=== PATIENT | male | born 1965 | race Native Hawaiian/Other Pacific Islander ===

== ENCOUNTER 2017-02-06 14:54 | Emergency (ER) | payer MEDICARE ==
[2017-02-06] MEDS ORDERED: KEFZOL 1 GM IM ONE (15:05)
[2017-02-06] MEDS ORDERED: Adacel Vial IM ONE ×2 (15:05→15:39)
--- NOTE | 2017-02-06 15:12 | ERPHSYRPT ---
- History of Present Illness Time Seen by Provider: 02/06/17 15:06 Source: patient Exam Limitations: no limitations Physician History: 51-year-old white male arrives with complaint of amputation to his left fourth distal ring finger. Patient states he caught the left fourth distal ring finger in [place] an automobile. Patient brings in the distal tip of the left fourth distal finger. The finger had been amputated at the DIP joint. Patient complains of no pain to the finger. Patient also states he has pain of the left third finger at the PIP joint. He denies other injury. Patient states this occurred right just prior to arrival Past medical history includes a vascular stent to his lower legs from his heart, . Patient states he has a history of a punctured lung in the past. Patient states she is on blood thinners. Social history positive for tobacco use. Last tetanus 10 years ago. Occurred: just prior to arrival Method of Injury: other (caught left hand in [place] automobile) Severity of Pain-Max: none Severity of Pain-Current: none Extremities Pain Location: 2nd finger: left, 3rd finger: left Modifying Factors: Improves With: nothing Associated Symptoms: none Allergies/Adverse Reactions: No Known Drug Allergies Allergy (Unverified 02/06/17 15:10) Home Medications: Aspirin 325 mg DAILY 02/06/17 [History] - Review of Systems Constitutional: No Fever, No Chills Eyes: No Symptoms Ears, Nose, & Throat: No Symptoms Respiratory: No Cough, No Dyspnea Cardiac: No Chest Pain, No Edema, No Syncope Abdominal/Gastrointestinal: No Abdominal Pain, No Nausea, No Vomiting, No Diarrhea Genitourinary Symptoms: No Dysuria Musculoskeletal: Other (amputation left fourth distal finger, pain left fourth distal finger with swelling at PIP joint) Skin: Other (amputation left fourth distal finger) Neurological: No Dizziness, No Focal Weakness, No Sensory Changes Psychological: No Symptoms Endocrine: No Symptoms All Other Systems: Reviewed and Negative - Past Medical History Cardiac History: Coronary Artery Disease, Peripheral Vascular Disease - Past Surgical History Past Surgical History: Yes Other Surgical History: Vascular shunt from heart to lower extremities, "tube in heart, , c places himhest tube for punctured lung - Nursing Vital Signs Nursing Vital Signs: Initial Vital Signs Temperature 97.0 F 02/06/17 14:59 Pulse Rate 91 H 02/06/17 14:59 Respiratory Rate 89 H 02/06/17 14:59 Blood Pressure 127/96 02/06/17 14:59 O2 Sat by Pulse Oximetry 100 02/06/17 14:59 Pain Scale Pain Intensity 0 - Physical Exam General Appearance: alert Eyes, Ears, Nose, Throat Exam: moist mucous membranes Neck Exam: non-tender, supple Cardiovascular/Respiratory Exam: chest non-tender, normal breath sounds, regular rate/rhythm, no respiratory distress Abdominal Exam: non-tender, No guarding Back Exam: normal inspection, No vertebral tenderness Shoulder Exam: normal inspection, non-tender, no evidence of injury, normal ROM Elbow/Forearm Exam: normal inspection, non-tender, no evidence of injury, normal ROM Wrist Exam: normal inspection, non-tender, no evidence of injury, normal ROM Hand Exam: No normal inspection (amputation distal left fourth finger at the DIP joint. Swelling left third finger at PIP joint) DTR - Upper Extremity Exam: tricep (R): 2+, tricep (L): 2+ Neuro/Tendon Exam: normal sensation, normal motor functions Mental Status Exam: alert, oriented x 3, cooperative Skin Exam: normal color, warm, dry SpO2 Interpretation: normal (97%) - Course Nursing assessment & vital signs reviewed: Yes - Radiology Exams Left X-ray Interpretation: Interpreted by me (x-ray left hand: Amputation distal left fourth finger through DIP joint) Ordered Tests: Active Orders 24 hr Category Date Time Status Wound Care STAT Care 02/06/17 15:05 Active HAND (MINIMUM 3 VIEWS) Stat Exams 02/06/17 15:05 Taken Medication Summary Generic Name Dose Route Start Last Admin Trade Name Freq PRN Reason Stop Dose Admin Cefazolin Sodium/Dextrose 1 gm in 50 mls @ 100 mls/hr 02/06/17 15:39 15:40 Kefzol 1 Gm/50 Ml Premix IV 02/06/17 16:08 100 mls/hr STAT STA Administration Discontinued Medications Generic Name Dose Route Start Last Admin Trade Name Freq PRN Reason Stop Dose Admin Cefazolin Sodium 1 g 02/06/17 15:05 02/06/17 15:38 Kefzol 1 Gm IM 02/06/17 15:06 Not Given STAT ONE Diphtheria/Tetanus/Acell Pertussis 0.5 ml 02/06/17 15:05 02/06/17 15:37 Adacel Vial IM 02/06/17 15:06 0.5 ml .ONCE ONE Administration Diphtheria/Tetanus/Acell Pertussis Confirm 02/06/17 15:39 Adacel Vial Administered 02/06/17 15:40 Dose 0.5 ml IM .STK-MED ONE Cefazolin Sodium/Dextrose Confirm 02/06/17 15:36 Kefzol 1 Gm/50 Ml Premix Administered 02/06/17 15:37 Dose 1 gm in 50 mls @ ud IV .STK-MED ONE Lidocaine HCl 5 ml 02/06/17 15:52 Xylocaine 1% Hcl 20 Ml Mdv IJ 02/06/17 15:53 STAT ONE - Progress Progress: improved Progress Note: 02/06/17 15:35 This is a 51-year-old white male arrives with complaint of amputation of his distal left fourth finger after catching it in [place] an automobile just prior to arrival he also has some pain in his left third finger at the PIP joint. Patient had brought in the amputated portion of his distal fourth finger. Patient had a ring in place on the fourth finger. Ring has been removed by the nurses. Patient requested to be sent or consulted with with [facility]. He had minimal pain however is starting to get pain now. I discussed case with Dr. Jewell, hand surgeon at [facility]. He stated that the patient should be anesthetized. The wound should be cleansed. Dressing should be placed. A splint should be placed. Patient should be given Kefzol 1 g IV. Discharge with a prescription for Kefzol 500 mg every 6 hours for 10 days. Patient to contact Dr. Jewell tomorrow. Will write for pain medication as well 02/06/17 15:59 Digital block placed in the patient's left fourth finger using 1% lidocaine. Area sterilely cleansed and draped 1% lidocaine is used to to provide digital block tothe left fourth finger . The left fourth finger sterilely cleansed by the patient's nurse. Sterile dressing and splint is placed over the left fourth finger splint is also placed on the left fifth finger. Patient was given Kefzol 1 g IV - Departure Time of Disposition: 16:01 Departure Disposition: Home Clinical Impression: amputation distal fourth finger L, Sprain left third finger Condition: Fair Critical Care Time: No Additional Instructions: Return home. Keflex 500 mg orally every 6 hours for 10 days Rea 5/325 #15 one to 2 orally every 4-6 hours as needed for pain/ Follow-up with Dr. Jewell tomorrow ( call his office) Return for acute distress or for severe symptoms Prescriptions: Cephalexin Mh 500 mg [Keflex 500 mg] 500 mg PO Q6H #40 capsule Hydrocodone/Acetaminophen [Rea 5-325 Tablet] 1 - 2 tab PO Q4-6HPRN PRN #15 tablet MDD 8 tablets PRN Reason: Pain
[2017-02-06] MEDS ORDERED: KEFZOL 1 GM/50 ML PREMIX** 1 GM/50 ML IVPB IV ONE (15:36)
[2017-02-06] MEDS ORDERED: KEFZOL 1 GM/50 ML PREMIX** 1 GM/50 ML IVPB IV STA (15:39)
[2017-02-06] MEDS ORDERED: XYLOCAINE 1% HCL 20 ML MDV IJ ONE (15:52)
[2017-02-06 16:40] VITALS: BP 120/70; PULSE 77; O2SAT 97
--- NOTE | 2017-02-06 20:19 | XRAY ---
Indication: Fourth finger amputation. Comparison: None 3 views of the left hand demonstrates amputation involving the tuft of the fourth finger with also anterior DIP dislocation. Tiny punctate soft tissue foreign bodies at the base of the fourth finger. No other bony, articular, or soft tissue abnormalities.
== END 2017-02-06 16:48 | disposition home or self-care (01) ==
LOC: ED 14:54
DX: S68.125A Partial traumatic metacarpophalangeal amputation of left ring finger, initial encounter (principal); W31.89XA Contact with other specified machinery, initial encounter; I25.10 Atherosclerotic heart disease of native coronary artery without angina pectoris; I73.9 Peripheral vascular disease, unspecified; S63.615A Unspecified sprain of left ring finger, initial encounter
CPT/HCPCS: 73130; 90471; 90715; 96365; 96372; 99284; J0690

== ENCOUNTER 2018-09-16 13:17 | Emergency (ER) | payer MEDICAID, MEDICARE ==
[2018-09-16] MEDS ORDERED: Sodium Chloride 0.9% 1000 ML 1,000 ML IV STA (13:36)
[2018-09-16] MEDS ORDERED: Sodium Chloride 0.9% 1000 ML 1,000 ML ONE (13:46)
[2018-09-16 13:59] LABS: BASOPHIL % 0.5 % (0.0-0.4); Basophil (Absolute #) 0.02 (0-0.4); Eosinophil % 2.7 % (0.00-5.0); Eosinophil (Absolute #) 0.11 (0-0.5); Granulocyte Absolute (ANC) 2.87 (1.4-6.9); Granulocytes % 70.6 % (36.0-66.0); Hematocrit 38.3 % (42-50); Hemoglobin 12.6 gm/dl (12.5-18.0); Lymphocyte (Absolute #) 0.82 (1.0-4.6); Lymphocytes % 20.1 % (24.0-44.0); Mean Cell Volume 89.3 fl (78-100); Mean Corpuscular Hemoglobin 29.4 pg (26-32); Mean Corpuscular Hgb Concent. 32.9 g/dl (32-36); Mean Platelet Volume 9.8 fl (6-9.5); Monocyte (Absolute #) 0.25 (0.0-1.3); Monocytes % 6.1 % (0.0-12.0); Platelet Count 196 K/mm3 (150-450); Red Blood Count 4.29 M/mm3 (4.1-5.6); Red Cell Distribution Width 14.6 % (11.5-14.0); White Blood Count 4.1 K/mm3 (4.0-10.5)
--- NOTE | 2018-09-16 14:20 | ERPHSYRPT ---
- History of Present Illness Time Seen by Provider: 09/16/18 14:18 Source: patient Exam Limitations: no limitations Patient Subjective Stated Complaint: states was arguing with outside and got overheated. c/o weakness. Triage Nursing Assessment: on arrival per ems patient is hot to touch and diaphoretic. a/o times four. states he feels better now. iv fluids of saline w/o. Physician History: states was arguing with outside and got overheated. c/o weakness. Denies any other symptoms, feels better after he got IV fluids in ambulance. Timing/Duration: today Associated Symptoms: shortness of breath, diaphoresis, weakness Allergies/Adverse Reactions: acetaminophen [From Tylenol] Adverse Reaction (Verified 09/16/18 13:27) Home Medications: Aspirin 325 mg PO DAILY 02/06/17 [History] Hx Tetanus, Diphtheria Vaccination/Date Given: Yes (2016) Hx Influenza Vaccination/Date Given: No Hx Pneumococcal Vaccination/Date Given: No - Review of Systems Constitutional: Weakness, No Fever, No Chills Eyes: No Symptoms Ears, Nose, & Throat: No Symptoms Respiratory: Dyspnea, Dyspnea on Exertion (BELLE), No Cough Cardiac: No Chest Pain, No Edema, No Syncope Abdominal/Gastrointestinal: No Abdominal Pain, No Nausea, No Vomiting, No Diarrhea Genitourinary Symptoms: No Dysuria Musculoskeletal: No Back Pain, No Neck Pain Skin: No Rash Neurological: No Dizziness, No Focal Weakness, No Sensory Changes Psychological: No Symptoms Endocrine: No Symptoms All Other Systems: Reviewed and Negative - Past Medical History Pertinent Past Medical History: Yes Cardiac History: Coronary Artery Disease, Peripheral Vascular Disease Other Medical History: right lung collapsed - Past Surgical History Past Surgical History: Yes Cardiac: CABG, Cardiac Catheterization, Cardiac Stent Respiratory: Other Musculoskeletal: Orthopedic Surgery Other Surgical History: Vascular shunt from heart to lower extremities, "tube in heart, , c places himhest tube for punctured lung, left arm surgery - Social History Smoking Status: Current every day smoker Exposure to second hand smoke: Yes Drug Use: none Patient Lives Alone: No - Nursing Vital Signs Nursing Vital Signs: Initial Vital Signs Temperature 98.3 F 09/16/18 13:22 Pulse Rate 91 H 09/16/18 13:22 Respiratory Rate 16 09/16/18 13:22 Blood Pressure 115/66 09/16/18 13:22 O2 Sat by Pulse Oximetry 97 09/16/18 13:22 Pain Scale Pain Intensity 0 - Physical Exam General Appearance: no apparent distress, alert Eye Exam: PERRL/EOMI, eyes nml inspection Ears, Nose, Throat Exam: normal ENT inspection, TMs normal, pharynx normal, moist mucous membranes Neck Exam: normal inspection, non-tender, supple, full range of motion Respiratory Exam: normal breath sounds, lungs clear, No respiratory distress Cardiovascular Exam: regular rate/rhythm, normal heart sounds, normal peripheral pulses Gastrointestinal/Abdomen Exam: soft, normal bowel sounds, No tenderness, No mass Back Exam: normal inspection, normal range of motion, No CVA tenderness, No vertebral tenderness Extremity Exam: normal inspection, normal range of motion, pelvis stable Neurologic Exam: alert, oriented x 3, cooperative, normal mood/affect, nml cerebellar function, nml station & gait, sensation nml, No motor deficits Skin Exam: normal color, warm, dry, No rash Lymphatic Exam: No adenopathy SpO2: 97 - Course Nursing assessment & vital signs reviewed: Yes Ordered Tests: Active Orders 24 hr Category Date Time Status EKG-ER Only STAT Care 09/16/18 13:36 Active Oxygen-ED Only Nasal Cannula 2 lpm Care 09/16/18 13:36 Active CHEST 1 VIEW (PORTABLE) Stat Exams 09/16/18 13:37 Ordered CBC W DIFF Stat Lab 09/16/18 13:56 Completed CMP Stat Lab 09/16/18 13:56 Completed TROPONIN Stat Lab 09/16/18 13:56 Completed Medication Summary Generic Name Dose Route Start Last Admin Trade Name Freq PRN Reason Stop Dose Admin Sodium Chloride 1,000 mls @ 999 mls/hr 09/16/18 13:36 09/16/18 13:46 Sodium Chloride 0.9% 1000 Ml IV 09/16/18 14:36 999 mls/hr .Q1H1M STA Administration Potassium Bicarbonate 50 meq 09/16/18 14:30 K-Lyte 25 Meq PO 09/16/18 14:31 STAT ONE Discontinued Medications Generic Name Dose Route Start Last Admin Trade Name Freq PRN Reason Stop Dose Admin Sodium Chloride Confirm 09/16/18 13:46 Sodium Chloride 0.9% 1000 Ml Administered 09/16/18 13:47 Dose 1,000 mls @ .ROUTE .[facility]-MED ONE Lab/Rad Data: Laboratory Result Diagrams 09/16/18 13:56 09/16/18 13:56 Laboratory Results 09/16/18 09/16/18 Range/Units 13:56 13:56 WBC 4.1 (4.0-10.5) K/mm3 RBC 4.29 (4.1-5.6) M/mm3 Hgb 12.6 (12.5-18.0) gm/dl Hct 38.3 L (42-50) % MCV 89.3 (78-100) fl MCH 29.4 (26-32) pg MCHC 32.9 (32-36) g/dl RDW 14.6 H (11.5-14.0) % Plt Count 196 (150-450) K/mm3 MPV 9.8 H (6-9.5) fl Gran % 70.6 H (36.0-66.0) % Eos # (Auto) 0.11 (0-0.5) Absolute Lymphs (auto) 0.82 L (1.0-4.6) Absolute Monos (auto) 0.25 (0.0-1.3) Lymphocytes % 20.1 L (24.0-44.0) % Monocytes % 6.1 (0.0-12.0) % Eosinophils % 2.7 (0.00-5.0) % Basophils % 0.5 (0.0-0.4) % Absolute Granulocytes 2.87 (1.4-6.9) Basophils # 0.02 (0-0.4) Sodium 141 (137-145) mmol/L Potassium 3.2 L (3.5-5.1) mmol/L Chloride 110 H (98-107) mmol/L Carbon Dioxide 26 (22-30) mmol/L Anion Gap 8.8 (5-15) MEQ/L BUN 18 (9-20) mg/dL Creatinine 0.79 (0.66-1.25) mg/dL Estimated GFR > 60.0 ML/MIN Glucose 139 H (74-106) mg/dL Calcium 7.9 L (8.4-10.2) mg/dL Total Bilirubin 0.60 (0.2-1.3) mg/dL AST 20 (17-59) U/L ALT 13 (0-50) U/L Alkaline Phosphatase 69 (38-126) U/L Troponin I < 0.012 (0.000-0.034) ng/mL Serum Total Protein 5.7 L (6.3-8.2) g/dL Albumin 3.1 L (3.5-5.0) g/dL - Progress Progress: improved Counseled pt/family regarding: lab results, diagnosis, need for follow-up, rad results - Departure Departure Disposition: Home Clinical Impression: Mild dehydration, Hypokalemia Condition: Stable Critical Care Time: No Referrals: DOCTOR,NO FAMILY [Primary Care Provider] - Instructions: Dehydration, Adult (DC), Hypokalemia (DC) Additional Instructions: Discharge/Care Plan DAVID EL was seen on 09/16/18 in the Emergency Room. The patient was counseled regarding Diagnosis,Lab results, Imaging studies, need for follow up and when to return to the Emergency Room. Prescriptions given: Discharge Note I have spoken with the patient and/or caregivers. I have explained the patient' s condition, diagnosis and treatment plan based on the information available to me at this time. I have answered the patient's and/or caregiver's questions and addressed any concerns. The patient and/or caregivers have as good understanding of the patient's diagnosis, condition and treatment plan as can be expected at this point. The vital signs have been stable. The patient's condition is stable and appropriate for discharge from the emergency department. The patient will pursue further outpatient evaluation with the primary care physician or other designated or consulting physician as outlined in the discharge instructions. The patient and/or caregivers are agreeable to this plan of care and follow-up instructions have been explained in detail. The patient and/or caregivers have received these instruction. The patient/and or caregivers are aware that any significant change in condition or worsening of symptoms should prompt an immediate return to this or the closest emergency department or call 911. Prescriptions: Potassium Chloride [K-Dur] 10 meq PO DAILY PRN PRN #15 [email or web address] PRN Reason: Muscle Aches
[2018-09-16 14:25] LABS: ALBUMIN 3.1 g/dL (3.5-5.0); ALKALINE PHOSPHATASE 69 U/L (38-126); ANION GAP 8.8 MEQ/L (5-15); BLOOD UREA NITROGEN 18 mg/dL (9-20); CHLORIDE 110 mmol/L (98-107); Calcium 7.9 mg/dL (8.4-10.2); Carbon Dioxide 26 mmol/L (22-30); Creatinine 1 0.79 mg/dL (0.66-1.25); Glucose 139 mg/dL (74-106); Potassium 3.2 mmol/L (3.5-5.1); SGOT/AST 20 U/L (17-59); SGPT/ALT 13 U/L (0-50); SODIUM 141 mmol/L (137-145); Total Protein 5.7 g/dL (6.3-8.2)
[2018-09-16 14:26] LABS: TROPONIN < 0.012 ng/mL (0.000-0.034)
[2018-09-16] MEDS ORDERED: K-LYTE 25 MEQ PO ONE (14:30)
[2018-09-16] MEDS ORDERED: K-LYTE 25 MEQ ONE (14:36)
[2018-09-16 14:46] VITALS: BP 115/76; PULSE 72; O2SAT 100
--- NOTE | 2018-09-16 21:16 | XRAY ---
Indication: Short of breath. Facial flush. History asthma. Comparison: None Portable chest hyperinflated with right apical fibrosis/scarring. No focal infiltrate, consolidation, or large effusion. Heart and mediastinal structures within normal limits. Bony thorax intact with mild double curvature scoliosis. Impression: Nonacute hyperinflated chest with chronic features.
== END 2018-09-16 15:00 | disposition home or self-care (01) ==
LOC: ED 13:17
DX: E86.0 Dehydration (principal); E87.6 Hypokalemia; I25.10 Atherosclerotic heart disease of native coronary artery without angina pectoris; I73.9 Peripheral vascular disease, unspecified
CPT/HCPCS: 36415; 71045; 80053; 84484; 85025; 93005; 96360; 99284; A9270-GY

== ENCOUNTER 2018-10-06 10:12 | Emergency (ER) | payer MEDICAID ==
[2018-10-06 10:35] LABS: BASOPHIL % 0.8 % (0.0-0.4); Basophil (Absolute #) 0.05 (0-0.4); Eosinophil (Absolute #) 0.12 (0-0.5); Granulocyte Absolute (ANC) 3.74 (1.4-6.9); Granulocytes % 61.8 % (36.0-66.0); Hemoglobin 15.2 gm/dl (12.5-18.0); Lymphocyte (Absolute #) 1.76 (1.0-4.6); Mean Cell Volume 86.5 fl (78-100); Mean Corpuscular Hemoglobin 29.2 pg (26-32); Mean Corpuscular Hgb Concent. 33.8 g/dl (32-36); Mean Platelet Volume 9.8 fl (6-9.5); Monocyte (Absolute #) 0.39 (0.0-1.3); Monocytes % 6.4 % (0.0-12.0); Platelet Count 268 K/mm3 (150-450); Red Cell Distribution Width 14.6 % (11.5-14.0); White Blood Count 6.1 K/mm3 (4.0-10.5)
--- NOTE | 2018-10-06 10:38 | ERPHSYRPT ---
- History of Present Illness Time Seen by Provider: 10/06/18 10:23 Source: patient, police Exam Limitations: no limitations Physician History: 53-year-old white male with history coronary artery disease, peripheral vascular disease, history of right lung collapse in the past. Patient brought by police apparently voluntarily for evaluation patient apparently has been hallucinating he states he's been seeing pictures with other men with his states she's been hearing sounds like his has been crying outside of his window. Apparently the patient was noted in his house to be waving any sort around which he states was in a box States he does not want to himself. When I asked him if he wanted to harm anybody else he states he might want to harm a roommate who had moved out and took some money. Past medical history includes coronary artery disease peripheral vascular disease, right lung collapsed Patient has some kind of vague history of lung cancer which I cannot find in the chart. Past surgical history includes CABG, cardiac catheter, cardiac stent, vascular shunt to his lower extremities, 2 in his heart, chest tube secondary to puncture long, left arm surgery, amputation of the left fourth finger, Social history positive tobacco use positive marijuana use denies alcohol Psychological history patient states that he had a psychological problem when he was a child apparently had been placed on Elavil. With possible depression. Timing/Duration: other (several months) Severity: moderate Modifying Factors: Improves With: nothing Associated Symptoms: No nausea, No vomiting, No abdominal pain, No shortness of breath, No heartburn, No diaphoresis, No cough, No chills, No chest pain, No fever, No headaches, No loss of appetite, No malaise, No rash, No syncope, No seizure, No weakness Allergies/Adverse Reactions: acetaminophen [From Tylenol] Adverse Reaction (Verified 10/06/18 13:53) Home Medications: Aspirin 325 mg PO DAILY 02/06/17 [History] Atorvastatin Calcium 20 mg PO DAILY 10/06/18 [History] Hx Tetanus, Diphtheria Vaccination/Date Given: Yes (2016) Hx Influenza Vaccination/Date Given: No Hx Pneumococcal Vaccination/Date Given: No - Review of Systems Constitutional: No Fever, No Chills Eyes: No Symptoms Ears, Nose, & Throat: No Symptoms Respiratory: No Cough, No Dyspnea Cardiac: No Chest Pain, No Edema, No Syncope Abdominal/Gastrointestinal: No Abdominal Pain, No Nausea, No Vomiting, No Diarrhea Genitourinary Symptoms: No Dysuria Musculoskeletal: No Back Pain, No Neck Pain Skin: No Rash Neurological: No Dizziness, No Focal Weakness, No Sensory Changes Psychological: Drug Abuse (patient uses marijuana), Hallucinations, Other ( paranoid ideation seeing pictures of his with other men, hearing his outside his window crying) Endocrine: No Symptoms All Other Systems: Reviewed and Negative - Past Medical History Pertinent Past Medical History: Yes Cardiac History: Coronary Artery Disease, Peripheral Vascular Disease Other Medical History: right lung collapsed - Past Surgical History Past Surgical History: Yes Cardiac: CABG, Cardiac Catheterization, Cardiac Stent Respiratory: Other Musculoskeletal: Orthopedic Surgery Other Surgical History: Vascular shunt from heart to lower extremities, "tube in heart, , c places himhest tube for punctured lung, left arm surgery - Social History Smoking Status: Current every day smoker Exposure to second hand smoke: Yes Drug Use: none Patient Lives Alone: No - Nursing Vital Signs Nursing Vital Signs: Initial Vital Signs Temperature 98.3 F 10/06/18 10:14 Pulse Rate 124 H 10/06/18 10:14 Respiratory Rate 22 10/06/18 10:14 Blood Pressure 185/117 10/06/18 10:14 O2 Sat by Pulse Oximetry 98 10/06/18 10:14 Pain Scale Pain Intensity 0 - Physical Exam General Appearance: no apparent distress, alert, thin, other (well-developed well-nourished white male alert oriented x3 rapid speech) Eye Exam: PERRL/EOMI, eyes nml inspection Ears, Nose, Throat Exam: normal ENT inspection, TMs normal, pharynx normal, moist mucous membranes Neck Exam: normal inspection, non-tender, supple, full range of motion Respiratory Exam: normal breath sounds, lungs clear, No respiratory distress Cardiovascular Exam: regular rate/rhythm, normal heart sounds, normal peripheral pulses, capillary refill <2 sec Gastrointestinal/Abdomen Exam: soft, normal bowel sounds, No tenderness, No mass Back Exam: normal inspection, normal range of motion, No CVA tenderness, No vertebral tenderness Extremity Exam: normal inspection, normal range of motion, pelvis stable Neurologic Exam: alert, oriented x 3, cooperative, 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 nml as tested, normal mood/affect, nml cerebellar function, nml station & gait, sensation nml, No motor deficits Skin Exam: normal color, warm, dry, No rash Lymphatic Exam: No adenopathy SpO2 Interpretation: normal (96%) - Course Nursing assessment & vital signs reviewed: Yes EKG Interpreted by Me: RATE (113 bpm), Sinus Tach, NORMAL AXIS, NORMAL INTERVALS , Other (EKG: Sinus tachycardia 113 beats per minute, normal axis, moderate amount of artifact, no acute ST or T wave changes noted) Ordered Tests: Active Orders 24 hr Category Date Time Status EKG-ER Only STAT Care 10/06/18 10:17 Active IV Insertion STAT Care 10/06/18 10:17 Active HEAD WITHOUT CONTRAST [CT] Stat Exams 10/06/18 14:55 Completed ACETAMINOPHEN Stat Lab 10/06/18 10:32 Completed CBC W DIFF Stat Lab 10/06/18 10:32 Completed CMP Stat Lab 10/06/18 10:32 Completed ETHYL ALCOHOL Stat Lab 10/06/18 10:32 Completed SALICYLATE Stat Lab 10/06/18 10:32 Completed UA W/RFX UR CULTURE Stat Lab 10/06/18 11:43 Completed Urine Triage Profile Stat Lab 10/06/18 11:43 Completed Medication Summary Discontinued Medications Generic Name Dose Route Start Last Admin Trade Name Bjq PRN Reason Stop Dose Admin Sodium Chloride 1,000 mls @ 999 mls/hr 10/06/18 11:01 10/06/18 11:37 Sodium Chloride 0.9% 1000 Ml IV 10/06/18 12:01 Infused .Q1H1M STA Infusion Sodium Chloride Confirm 10/06/18 11:03 Sodium Chloride 0.9% 1000 Ml Administered 10/06/18 11:04 Dose 1,000 mls @ ud .ROUTE .[facility] Lab/Rad Data: Laboratory Result Diagrams 10/06/18 10:32 10/06/18 10:32 Laboratory Results 10/06/18 10/06/18 10/06/18 Range/Units 11:43 11:43 10:32 WBC (4.0-10.5) K/mm3 RBC (4.1-5.6) M/mm3 Hgb (12.5-18.0) gm/dl Hct (42-50) % MCV (78-100) fl MCH (26-32) pg MCHC (32-36) g/dl RDW (11.5-14.0) % Plt Count (150-450) K/mm3 MPV (6-9.5) fl Gran % (36.0-66.0) % Eos # (Auto) (0-0.5) Absolute Lymphs (auto) (1.0-4.6) Absolute Monos (auto) (0.0-1.3) Lymphocytes % (24.0-44.0) % Monocytes % (0.0-12.0) % Eosinophils % (0.00-5.0) % Basophils % (0.0-0.4) % Absolute Granulocytes (1.4-6.9) Basophils # (0-0.4) Sodium 141 (137-145) mmol/L Potassium 3.3 L (3.5-5.1) mmol/L Chloride 104 (98-107) mmol/L Carbon Dioxide 28 (22-30) mmol/L Anion Gap 11.9 (5-15) MEQ/L BUN 14 (9-20) mg/dL Creatinine 0.82 (0.66-1.25) mg/dL Estimated GFR > 60.0 ML/MIN Glucose 115 H (74-106) mg/dL Calcium 9.0 (8.4-10.2) mg/dL Total Bilirubin 0.50 (0.2-1.3) mg/dL AST 23 (17-59) U/L ALT 17 (0-50) U/L Alkaline Phosphatase 105 (38-126) U/L Serum Total Protein 7.7 (6.3-8.2) g/dL Albumin 4.3 (3.5-5.0) g/dL Urine Color YELLOW (YELLOW) Urine Appearance CLEAR (CLEAR) Urine pH 6.0 (5-6) Ur Specific Vina 1.016 (1.005-1.025) Urine Protein NEGATIVE (Negative) Urine Ketones NEGATIVE (NEGATIVE) Urine Blood NEGATIVE (0-5) Andrei/ul Urine Nitrite NEGATIVE (NEGATIVE) Urine Bilirubin NEGATIVE (NEGATIVE) Urine Urobilinogen 2 (0-1) mg/dL Ur Leukocyte Esterase NEGATIVE (NEGATIVE) Urine WBC (Auto) NONE (0-5) /HPF Urine RBC (Auto) NONE (0-2) /HPF U Epithel Cells (Auto) NONE (FEW) /HPF Urine Bacteria (Auto) NONE (NEGATIVE) /HPF Urine Mucus (Auto) SLIGHT (NEGATIVE) /HPF Urine Culture Reflexed NO (NO) Urine Glucose NEGATIVE (NEGATIVE) mg/dL Salicylates < 1.0 L (2-20) mg/dL Urine Opiates Level NEGATIVE (NEGATIVE) Ur Methadone NEGATIVE (NEGATIVE) Acetaminophen < 10 L (10-30) ug/ml Urine Barbiturates NEGATIVE (NEGATIVE) Ur Phencyclidine (PCP) NEGATIVE (NEGATIVE) Urine Amphetamine POSITIVE (NEGATIVE) U Benzodiazepine Level NEGATIVE (NEGATIVE) Urine Cocaine NEGATIVE (NEGATIVE) Urine Marijuana (THC) NEGATIVE (NEGATIVE) Ethyl Alcohol < 10 (0-10) mg/dL 10/06/18 Range/Units 10:32 WBC 6.1 (4.0-10.5) K/mm3 RBC 5.20 (4.1-5.6) M/mm3 Hgb 15.2 (12.5-18.0) gm/dl Hct 45.0 (42-50) % MCV 86.5 (78-100) fl MCH 29.2 (26-32) pg MCHC 33.8 (32-36) g/dl RDW 14.6 H (11.5-14.0) % Plt Count 268 (150-450) K/mm3 MPV 9.8 H (6-9.5) fl Gran % 61.8 (36.0-66.0) % Eos # (Auto) 0.12 (0-0.5) Absolute Lymphs (auto) 1.76 (1.0-4.6) Absolute Monos (auto) 0.39 (0.0-1.3) Lymphocytes % 29.0 (24.0-44.0) % Monocytes % 6.4 (0.0-12.0) % Eosinophils % 2.0 (0.00-5.0) % Basophils % 0.8 (0.0-0.4) % Absolute Granulocytes 3.74 (1.4-6.9) Basophils # 0.05 (0-0.4) Sodium (137-145) mmol/L Potassium (3.5-5.1) mmol/L Chloride (98-107) mmol/L Carbon Dioxide (22-30) mmol/L Anion Gap (5-15) MEQ/L BUN (9-20) mg/dL Creatinine (0.66-1.25) mg/dL Estimated GFR ML/MIN Glucose (74-106) mg/dL Calcium (8.4-10.2) mg/dL Total Bilirubin (0.2-1.3) mg/dL AST (17-59) U/L ALT (0-50) U/L Alkaline Phosphatase (38-126) U/L Serum Total Protein (6.3-8.2) g/dL Albumin (3.5-5.0) g/dL Urine Color (YELLOW) Urine Appearance (CLEAR) Urine pH (5-6) Ur Specific Vina (1.005-1.025) Urine Protein (Negative) Urine Ketones (NEGATIVE) Urine Blood (0-5) Andrei/ul Urine Nitrite (NEGATIVE) Urine Bilirubin (NEGATIVE) Urine Urobilinogen (0-1) mg/dL Ur Leukocyte Esterase (NEGATIVE) Urine WBC (Auto) (0-5) /HPF Urine RBC (Auto) (0-2) /HPF U Epithel Cells (Auto) (FEW) /HPF Urine Bacteria (Auto) (NEGATIVE) /HPF Urine Mucus (Auto) (NEGATIVE) /HPF Urine Culture Reflexed (NO) Urine Glucose (NEGATIVE) mg/dL Salicylates (2-20) mg/dL Urine Opiates Level (NEGATIVE) Ur Methadone (NEGATIVE) Acetaminophen (10-30) ug/ml Urine Barbiturates (NEGATIVE) Ur Phencyclidine (PCP) (NEGATIVE) Urine Amphetamine (NEGATIVE) U Benzodiazepine Level (NEGATIVE) Urine Cocaine (NEGATIVE) Urine Marijuana (THC) (NEGATIVE) Ethyl Alcohol (0-10) mg/dL - Progress Progress: improved Progress Note: 10/06/18 14:56 Patient positive for amphetamines in his drug screen. Patient evaluated by [facility] apparently patient and his tells [facility] he possibly has brain cancer and or lung cancer. [facility] recommends admission to a medical facility rather than a psych facility Cannot find brain cancer in the chart. Will obtain CT of the head and consider referral. 10/07/18 07:10 Had told the patient that we were considering transfer to a medical facility however the patient stated he did not want to go to one and wanted to go home. We had contacted [facility] again and they apparently had agreed to accept the patient. However the patient apparently left. Nurses notified police as to the patient's leaving - Departure Departure Disposition: AMA Clinical Impression: Hallucinations, Paranoid ideation Condition: Fair Critical Care Time: No Referrals: DOCTOR,NO FAMILY [Primary Care Provider] -
[2018-10-06 10:47] LABS: ALBUMIN 4.3 g/dL (3.5-5.0); ALKALINE PHOSPHATASE 105 U/L (38-126); ANION GAP 11.9 MEQ/L (5-15); BLOOD UREA NITROGEN 14 mg/dL (9-20); CHLORIDE 104 mmol/L (98-107); Carbon Dioxide 28 mmol/L (22-30); Creatinine 1 0.82 mg/dL (0.66-1.25); Glucose 115 mg/dL (74-106); Potassium 3.3 mmol/L (3.5-5.1); SGOT/AST 23 U/L (17-59); SGPT/ALT 17 U/L (0-50); SODIUM 141 mmol/L (137-145); Total Protein 7.7 g/dL (6.3-8.2)
[2018-10-06 10:49] LABS: ACETAMINOPHEN < 10 ug/ml (10-30); ETHYL ALCOHOL < 10 mg/dL (0-10); SALICYLATE < 1.0 mg/dL (2-20)
[2018-10-06] MEDS ORDERED: Sodium Chloride 0.9% 1000 ML 1,000 ML IV STA (11:01)
[2018-10-06] MEDS ORDERED: Sodium Chloride 0.9% 1000 ML 1,000 ML ONE (11:03)
[2018-10-06 12:01] LABS: Appearance CLEAR (CLEAR); Bilirubin NEGATIVE (NEGATIVE); Blood NEGATIVE Ery/ul (0-5); Glucose NEGATIVE (NEGATIVE); Ketones NEGATIVE (NEGATIVE); Leukocyte Esterase NEGATIVE (NEGATIVE); Mucus SLIGHT /HPF (NEGATIVE); Nitrite NEGATIVE (NEGATIVE); Protein,Urine Dip NEGATIVE (Negative); Specific Gravity 1.016 (1.005-1.025); Urobilinogen 2 mg/dL (0-1)
[2018-10-06 12:08] LABS: Barbiturate,Urine NEGATIVE (NEGATIVE); Benzodiazepine,Urine NEGATIVE (NEGATIVE); Cocaine,Urine NEGATIVE (NEGATIVE); Methadone,Urine NEGATIVE (NEGATIVE); Opiate,Urine NEGATIVE (NEGATIVE); PCP,Urine NEGATIVE (NEGATIVE); THC,Urine NEGATIVE (NEGATIVE)
[2018-10-06 12:29] LABS: Amphetamine,Urine POSITIVE (NEGATIVE)
[2018-10-06 13:58] VITALS: O2SAT 96
[2018-10-06 15:03] VITALS: BP 141/96; PULSE 108
--- NOTE | 2018-10-06 15:25 | XRAY ---
Indication: Hallucinations. Multiple contiguous axial images obtained through the head without contrast. Comparison: None Age-appropriate global atrophy and minimal periventricular degenerative micro-ischemia bilaterally. No acute intracranial hemorrhage, abnormal extra-axial fluid collection, or mass effect. Fourth ventricle is midline without hydrocephalus. Turner-white matter differentiation preserved. Bony calvarium intact. Visualized paranasal sinuses and mastoid air cells are clear. Impression: Normal aging brain including atrophy and degenerative micro-ischemia. No acute intracranial abnormalities. CTDI 68.51
== END 2018-10-06 16:50 | disposition left against medical advice (07) ==
LOC: ED 10:12
DX: R44.3 Hallucinations, unspecified (principal); F60.0 Paranoid personality disorder
CPT/HCPCS: 36000; 36415; 70450; 80053; 80307; 81001; 85025; 93005; 96360; 99282; 99285; G0481; 96374; G0480

== ENCOUNTER 2018-10-06 21:30 | Emergency (ER) | payer MEDICAID | END 2018-10-06 22:51 | disposition short-term general hospital (02) | LOC: ED 21:30 | DX: R45.850 Homicidal ideations (principal); R44.3 Hallucinations, unspecified | CPT/HCPCS: 99282 ==

== ENCOUNTER 2021-09-25 20:30 | Emergency (ER) | payer MEDICAID ==
--- NOTE | 2021-09-25 20:40 | ERPHSYRPT ---
- History of Present Illness Time Seen by Provider: 09/25/21 20:39 Historian: patient, family Exam Limitations: no limitations Physician History: This 56-year-old white male patient of Dr. Zaragoza who has coronary artery disease and has had a CABG and cardiac stent in the past and is taking Plavix. Patient was not being active and noticed some mild left anterior chest wall pain that was described a mild ache which radiated down his left arm. He took 1 nitroglycerin and his symptoms resolved completely prior to arrival. Given his cardiac history he wanted to be evaluated. He is not short of breath. He has had no fever. He denies cough. He has no abdominal pain. He has had no nausea vomiting or diarrhea. Timing/Duration: today, resolved prior to arrival Activities at Onset: none Quality: aching Chest Pain Radiation: arm Severity of Pain-Max: mild (Left) Severity of Pain-Current: none Modifying Factors: Improves With: nitroglycerin (Help resolve the pain) Associated Symptoms: denies symptoms Prior Chest Pain/Cardiac Workup: cardiac cath Nitro Today/Relief: 0.4 mg x 1, provided at home, complete relief Aspirin Treatment Today: no aspirin today Allergies/Adverse Reactions: acetaminophen [From Tylenol] Adverse Reaction (Verified 09/25/21 20:41) Itching Home Medications: Aspirin 81 mg PO DAILY 02/06/17 [History] Atorvastatin Calcium 20 mg PO DAILY 10/06/18 [History] Clopidogrel Bisulfate [Plavix] 1 tab PO HS 09/25/21 [History] Quetiapine Fumarate 25 mg [Seroquel 25 MG] 1 tab PO TID 09/25/21 [History] Hx Tetanus, Diphtheria Vaccination/Date Given: Yes Hx Influenza Vaccination/Date Given: No Hx Pneumococcal Vaccination/Date Given: No Travel Risk - International Travel Have you traveled outside of the country in past 3 weeks: No - Coronavirus Screening Are you exhibiting any of the following symptoms?: No Close contact with a COVID-19 positive Pt in past 14-21 Days: No - Vaccine Status Have you recieved a Covid-19 vaccination: No - Review of Systems Constitutional: No Symptoms Eyes: No Symptoms Ears, Nose, & Throat: No Symptoms Respiratory: No Symptoms Cardiac: Chest Pain (Completely resolved prior to arrival) Abdominal/Gastrointestinal: No Symptoms Genitourinary Symptoms: No Symptoms Musculoskeletal: No Symptoms Skin: No Symptoms Neurological: No Symptoms Psychological: No Symptoms Endocrine: No Symptoms Hematologic/Lymphatic: No Symptoms Immunological/Allergic: No Symptoms - Past Medical History Pertinent Past Medical History: Yes Cardiac History: Coronary Artery Disease, Peripheral Vascular Disease GI Medical History: GERD Other Medical History: right lung collapsed - Past Surgical History Past Surgical History: Yes Cardiac: CABG, Cardiac Catheterization, Cardiac Stent Respiratory: Other Musculoskeletal: Orthopedic Surgery Other Surgical History: Vascular shunt from heart to lower extremities, "tube in heart, , c places himhest tube for punctured lung, left arm surgery - Social History Smoking Status: Current every day smoker How long have you smoked: years Exposure to second hand smoke: Yes Drug Use: none Patient Lives Alone: No - Nursing Vital Signs Nursing Vital Signs: Initial Vital Signs Temperature 97.8 F 09/25/21 20:31 Pulse Rate 94 H 09/25/21 20:31 Respiratory Rate 24 09/25/21 20:31 Blood Pressure 125/87 09/25/21 20:31 O2 Sat by Pulse Oximetry 98 09/25/21 20:31 Pain Scale Pain Intensity 0 - Physical Exam General Appearance: no apparent distress, alert, thin Eye Exam: PERRL/EOMI, eyes nml inspection Ears, Nose, Throat Exam: normal ENT inspection, moist mucous membranes Neck Exam: normal inspection, non-tender, supple, full range of motion Respiratory Exam: normal breath sounds, lungs clear, airway intact, No chest tenderness, No respiratory distress Cardiovascular Exam: regular rate/rhythm, normal heart sounds, normal peripheral pulses Gastrointestinal/Abdomen Exam: soft, normal bowel sounds, No tenderness Rectal Exam: not done Back Exam: normal inspection, normal range of motion, No CVA tenderness, No vertebral tenderness Extremity Exam: normal inspection, normal range of motion, pelvis stable Neurologic Exam: alert, oriented x 3, cooperative, 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 Patient's current twelve-lead EKG is no different than the comparison EKG dated 10/06/2018) Ordered Tests: Active Orders 24 hr Category Date Time Status Flatwork Supervisor STAT Care 09/25/21 20:56 Active EKG-ER Only STAT Care 09/25/21 20:55 Active IV Insertion STAT Care 09/25/21 20:55 Active Pulse Oximetry (ED) STAT Care 09/25/21 20:55 Active Re-Check Vital Signs STAT Care 09/25/21 20:55 Active CHEST 1 VIEW (PORTABLE) Stat Exams 09/25/21 20:56 Taken CHEST WITH CONTRAST [CT] Stat Exams 09/25/21 21:32 Taken CBC W DIFF Stat Lab 09/25/21 21:10 Completed CMP Stat Lab 09/25/21 21:10 Completed D-DIMER QUANTITATIVE Stat Lab 09/25/21 21:10 Completed TROPONIN Q3H Lab 09/25/21 21:10 Completed TROPONIN Q3H Lab 09/26/21 00:00 Ordered TROPONIN Q3H Lab 09/26/21 03:00 Ordered TROPONIN Q3H Lab 09/26/21 06:00 Ordered TROPONIN Q3H Lab 09/26/21 09:00 Ordered Medication Summary Discontinued Medications Generic Name Dose Route Start Last Admin Trade Name Freq PRN Reason Stop Dose Admin Aspirin 324 mg 09/25/21 20:55 09/25/21 21:04 Aspirin 81 Mg Tab.Chew PO 09/25/21 20:56 324 mg STAT ONE Administration Aspirin Confirm 09/25/21 21:01 Aspirin 81 Mg Tab.Chew Administered 09/25/21 21:02 Dose 324 mg .ROUTE .[facility] ONE Clopidogrel Bisulfate 75 mg 09/25/21 20:56 09/25/21 21:04 Clopidogrel Bisulfate 75 Mg Tablet PO 09/25/21 20:57 75 mg STAT ONE Administration Clopidogrel Bisulfate Confirm 09/25/21 21:01 Clopidogrel Bisulfate 75 Mg Tablet Administered 09/25/21 21:02 Dose 75 mg .ROUTE .[facility] ONE Sodium Chloride 500 mls @ 500 mls/hr 09/25/21 21:32 09/25/21 21:45 Sodium Chloride 0.9% 500 Ml IV 09/25/21 22:31 500 mls/hr .Q1H ONE Administration Sodium Chloride Confirm 09/25/21 21:44 Sodium Chloride 0.9% 500 Ml Administered 07/29/22 21:45 Dose 500 mls @ ud IV .[facility] ONE Potassium Chloride 10 meq 09/25/21 22:43 Potassium Chloride Tab 10 Meq Tab PO 09/25/21 22:44 STAT ONE Lab/Rad Data: Laboratory Result Diagrams 09/25/21 21:10 09/25/21 21:10 Laboratory Results 09/25/21 09/25/21 09/25/21 Range/Units 21:10 21:10 21:10 WBC (4.0-10.5) x10^3/uL RBC (4.1-5.6) x10^6/uL Hgb (12.5-18.0) g/dL Hct (42-50) % MCV (78-100) fL MCH (26-32) pg MCHC (32-36) g/dL RDW (11.5-14.0) % Plt Count (150-450) x10^3/uL MPV (7.5-11.0) fL Gran % (36.0-66.0) % Immature Gran % (Auto) (0.00-0.4) % Nucleat RBC Rel Count (0.00-0.1) % Eos # (Auto) (0-0.5) x10^3/uL Immature Gran # (Auto) (0.00-0.03) x10^3u/L Absolute Lymphs (auto) (1.0-4.6) x10^3/uL Absolute Monos (auto) (0.0-1.3) x10^3/uL Absolute Nucleated RBC (0.00-0.01) x10^3u/L Lymphocytes % (24.0-44.0) % Monocytes % (0.0-12.0) % Eosinophils % (0.00-5.0) % Basophils % (0.0-0.4) % Absolute Granulocytes (1.4-6.9) x10^3/uL Basophils # (0-0.4) x10^3/uL D-Dimer 1.18 H* (0.0-0.50) mg/L Sodium 136 L (137-145) mmol/L Potassium 3.2 L (3.5-5.1) mmol/L Chloride 101 (98-107) mmol/L Carbon Dioxide 28 (22-30) mmol/L Anion Gap 10.9 (5-15) MEQ/L BUN 14 (9-20) mg/dL Creatinine 0.99 (0.66-1.25) mg/dL Estimated GFR > 60.0 ML/MIN Glucose 187 H (74-106) mg/dL Calcium 8.7 (8.4-10.2) mg/dL Total Bilirubin 1.20 (0.2-1.3) mg/dL AST 35 (17-59) U/L ALT 20 (0-50) U/L Alkaline Phosphatase 87 (38-126) U/L Troponin I < 0.012 (0.000-0.034) ng/mL Serum Total Protein 7.0 (6.3-8.2) g/dL Albumin 3.9 (3.5-5.0) g/dL 09/25/21 Range/Units 21:10 WBC 6.5 (4.0-10.5) x10^3/uL RBC 5.03 (4.1-5.6) x10^6/uL Hgb 15.5 (12.5-18.0) g/dL Hct 45.1 (42-50) % MCV 89.7 (78-100) fL MCH 30.8 (26-32) pg MCHC 34.4 (32-36) g/dL RDW 12.9 (11.5-14.0) % Plt Count 276 (150-450) x10^3/uL MPV 9.5 (7.5-11.0) fL Gran % 56.3 (36.0-66.0) % Immature Gran % (Auto) 0.2 (0.00-0.4) % Nucleat RBC Rel Count 0.0 (0.00-0.1) % Eos # (Auto) 0.26 (0-0.5) x10^3/uL Immature Gran # (Auto) 0.01 (0.00-0.03) x10^3u/L Absolute Lymphs (auto) 2.07 (1.0-4.6) x10^3/uL Absolute Monos (auto) 0.44 (0.0-1.3) x10^3/uL Absolute Nucleated RBC 0.00 (0.00-0.01) x10^3u/L Lymphocytes % 31.8 (24.0-44.0) % Monocytes % 6.8 (0.0-12.0) % Eosinophils % 4.0 (0.00-5.0) % Basophils % 0.9 (0.0-0.4) % Absolute Granulocytes 3.67 (1.4-6.9) x10^3/uL Basophils # 0.06 (0-0.4) x10^3/uL D-Dimer (0.0-0.50) mg/L Sodium (137-145) mmol/L Potassium (3.5-5.1) mmol/L Chloride (98-107) mmol/L Carbon Dioxide (22-30) mmol/L Anion Gap (5-15) MEQ/L BUN (9-20) mg/dL Creatinine (0.66-1.25) mg/dL Estimated GFR ML/MIN Glucose (74-106) mg/dL Calcium (8.4-10.2) mg/dL Total Bilirubin (0.2-1.3) mg/dL AST (17-59) U/L ALT (0-50) U/L Alkaline Phosphatase (38-126) U/L Troponin I (0.000-0.034) ng/mL Serum Total Protein (6.3-8.2) g/dL Albumin (3.5-5.0) g/dL - Progress Progress: improved, re-examined Air Movement: good Progress Note: 09/25/21 22:53 CTA of chest shows no acute cardiopulmonary process. There is no pulmonary embolus/emboli present Counseled pt/family regarding: lab results, diagnosis, need for follow-up, rad results - Departure Departure Disposition: Home Clinical Impression: Non-cardiac chest pain, Hypokalemia Condition: Stable Critical Care Time: No Referrals: MATA ZARAGOZA DO [Primary Care Provider] - Follow up/PCP as directed Additional Instructions: Take your medication as prescribed. Stop smoking tobacco. Follow-up with your primary care doctor and mitochondrial disorders counselor for further evaluation management.
[2021-09-25] MEDS ORDERED: BABY ASPIRIN 81 MG CHEW PO ONE (20:55)
[2021-09-25] MEDS ORDERED: PLAVIX Tablet PO ONE (20:56)
[2021-09-25] MEDS ORDERED: PLAVIX Tablet ONE (21:01)
[2021-09-25] MEDS ORDERED: BABY ASPIRIN 81 MG CHEW ONE (21:01)
[2021-09-25 21:13] LABS: Absolute Neutrophil Ct (ANC) 3.67 x10^3/uL (1.4-6.9); Basophil (Absolute #) 0.06 x10^3/uL (0-0.4); Eosinophil (Absolute #) 0.26 x10^3/uL (0-0.5); Hematocrit 45.1 % (42-50); Hemoglobin 15.5 g/dL (12.5-18.0); Lymphocyte (Absolute #) 2.07 x10^3/uL (1.0-4.6); Lymphocytes % 31.8 % (24.0-44.0); Mean Cell Volume 89.7 fL (78-100); Mean Corpuscular Hemoglobin 30.8 pg (26-32); Mean Corpuscular Hgb Concent. 34.4 g/dL (32-36); Mean Platelet Volume 9.5 fL (7.5-11.0); Monocyte (Absolute #) 0.44 x10^3/uL (0.0-1.3); Monocytes % 6.8 % (0.0-12.0); Neutrophil % 56.3 % (36.0-66.0); Platelet Count 276 x10^3/uL (150-450); Red Blood Count 5.03 x10^6/uL (4.1-5.6); Red Cell Distribution Width 12.9 % (11.5-14.0); White Blood Count 6.5 x10^3/uL (4.0-10.5)
[2021-09-25 21:15] LABS: ALBUMIN 3.9 g/dL (3.5-5.0); ALKALINE PHOSPHATASE 87 U/L (38-126); ANION GAP 10.9 MEQ/L (5-15); BLOOD UREA NITROGEN 14 mg/dL (9-20); CHLORIDE 101 mmol/L (98-107); Calcium 8.7 mg/dL (8.4-10.2); Carbon Dioxide 28 mmol/L (22-30); Creatinine 1 0.99 mg/dL (0.66-1.25); EST GLOMERULAR FILTRATION RATE > 60.0 ML/MIN; Glucose 187 mg/dL (74-106); Potassium 3.2 mmol/L (3.5-5.1); SGOT/AST 35 U/L (17-59); SGPT/ALT 20 U/L (0-50); SODIUM 136 mmol/L (137-145)
[2021-09-25] MEDS ORDERED: Sodium Chloride 0.9% 500 ML 500 ML IV ONE ×2 (21:32→21:44)
[2021-09-25] MEDS ORDERED: Klor Con PO ONE ×2 (22:43→22:54)
[2021-09-25 22:56] VITALS: O2SAT 98
[2021-09-25 23:14] VITALS: BP 110/81; PULSE 73
--- NOTE | 2021-09-26 07:31 | XRAY ---
Indication: Chest pain. Comparison: September 16, 2018 Portable chest again hyperinflated with biapical pleural-parenchymal fibrosis/scarring. Heart not enlarged. Bony thorax intact again with mild dextroscoliosis. No new/acute findings.
--- NOTE | 2021-09-26 07:31 | XRAY ---
Indication: Chest pain. Elevated d-dimer. Multiple contiguous axial images obtained through the chest using 100 cc Isovue 370 contrast and PE protocol. Comparison: November 08, 2018 There is good opacification of the pulmonary arteries to include the lobar and segmental branches. No pulmonary embolus. Heart not enlarged. Aorta is mildly arteriosclerotic without aneurysm/dissection. No pathologic mediastinal/hilar lymphadenopathy. Lungs again demonstrates extensive pulmonary emphysema and biapical pleural parenchymal fibrosis/scarring. New mild bibasilar dependent atelectasis. No suspicious pulmonary mass, infiltrate, or effusion. Bony thorax intact. Limited upper abdomen including adrenal glands are unremarkable. Impression: Negative pulmonary embolus. No acute cardiopulmonary abdomen abnormalities. Again pulmonary emphysema and biapical pleural parenchymal fibrosis/scarring. Comment: Preliminary interpretation made by C. No critical discrepancy.
== END 2021-09-25 23:20 | disposition home or self-care (01) ==
LOC: ED 20:30
DX: R07.89 Other chest pain (principal); E87.6 Hypokalemia; I25.10 Atherosclerotic heart disease of native coronary artery without angina pectoris; Z72.0 Tobacco use; Z79.02 Long term (current) use of antithrombotics/antiplatelets; Z79.899 Other long term (current) drug therapy; Z28.310 Unvaccinated for COVID-19
CPT/HCPCS: 36000; 36415; 71045; 71260; 80053; 84484; 85025; 85379; 93005; 93041; 94760; 99284; A9270-GY

== ENCOUNTER 2024-01-08 12:23 | Emergency (ER) | payer BC ==
[2024-01-08 12:40] VITALS: PULSE 130; RESP 22; TEMP 97.2
--- NOTE | 2024-01-08 12:48 | ERPHSYRPT ---
- History of Present Illness Time Seen by Provider: 01/08/24 12:48 Source: patient Exam Limitations: clinical condition Physician History: The patient presents with severe back pain. He is accompanied by an unspecified individual. He has been experiencing severe back pain for the past three days without any specific inciting event. The pain is diffuse and affects the entire back. He has a history of back issues but has not undergone any surgeries for his back. He is not currently taking any medication for the back pain. In addition to back pain, he has pain in both legs accompanied by weakness. No numbness, tingling, or urinary incontinence is present. He reports experiencing fever and chills but has not measured his temperature. No blood in urine or burning sensation during urination. Timing/Duration: day(s) (3) Method of Injury: unknown Quality: sharp, stabbing Back Pain Location: lumbar spine, paraspinous muscles Back Pain Radiation: lower legs Severity of Pain-Max: severe Severity of Pain-Current: severe Modifying Factors: Improves With: nothing. Worsens With: movement Associated Symptoms: chills, weakness, lower back pain, muscle spasms, No fever, No urinary incontinence, No loss of bowel control, No constipation, No nausea, No vomiting, No problems urinating, No dizziness, No numbness in legs/feet, No sensory/motor loss, No tingling in legs/feet Previous symptoms: no prior history Allergies/Adverse Reactions: acetaminophen [From Tylenol] Adverse Reaction (Verified 01/08/24 12:37) Itching Home Medications: Aspirin 81 mg PO DAILY 02/06/17 [History] Atorvastatin Calcium 20 mg PO DAILY 10/06/18 [History] Clopidogrel Bisulfate [Plavix] 1 tab PO HS 09/25/21 [History] Quetiapine Fumarate 25 mg [Seroquel 25 MG] 1 tab PO TID 09/25/21 [History] Haloperidol [Haldol] 5 mg PO DAILY 01/08/24 [History] Hx Tetanus, Diphtheria Vaccination/Date Given: Yes Hx Influenza Vaccination/Date Given: No Hx Pneumococcal Vaccination/Date Given: No - Review of Systems All Other Systems: Reviewed and Negative - Past Medical History Pertinent Past Medical History: Yes Cardiac History: Coronary Artery Disease, Peripheral Vascular Disease Respiratory History: Asthma, COPD GI Medical History: GERD Other Medical History: right lung collapsed,chronic back pain - Past Surgical History Past Surgical History: Yes Cardiac: CABG, Cardiac Catheterization, Cardiac Stent Respiratory: Other Musculoskeletal: Orthopedic Surgery Other Surgical History: Vascular shunt from heart to lower extremities, "tube in heart, , c places himhest tube for punctured lung, left arm surgery - Social History Smoking Status: Current every day smoker How long have you smoked: years Exposure to second hand smoke: Yes Drug Use: none Patient Lives Alone: No - Nursing Vital Signs Nursing Vital Signs: Initial Vital Signs Blood Pressure 135/99 01/08/24 12:37 O2 Sat by Pulse Oximetry 99 01/08/24 12:37 Pain Scale Pain Intensity [Back] 10 Pain Intensity 5 - Physical Exam General Appearance: mild distress, thin Neck Exam: normal inspection, non-tender, supple, full range of motion Respiratory Exam: airway intact, No respiratory distress Cardiovascular Exam: capillary refill <2 sec, No edema Back Exam: vertebral tenderness, decreased range of motion, muscle spasm, point tenderness, No rash Extremity Exam: normal inspection, other (SLR reproduces pain w/o numbness/tingling) Neurologic Exam: alert, oriented x 3, cooperative Skin Exam: normal color, warm, dry SpO2 Interpretation: normal SpO2: 99 O2 Delivery: Room Air - Course Nursing assessment & vital signs reviewed: Yes - CT Exams Lumbar Spine CT Interpretation: Tele-radiologist Report, Other (L3 metastatic bone lesion w ith multilevel disc herniation w/o central cord stenosis) Ordered Tests: Active Orders 24 hr Category Date Time Status IV Insertion STAT Care 01/08/24 12:48 Completed LUMBAR SPINE W/O [CT] Stat Exams 01/08/24 13:52 Completed CBC W DIFF Stat Lab 01/08/24 13:06 Completed CMP Stat Lab 01/08/24 13:06 Completed UA W/RFX UR CULTURE Stat Lab 01/08/24 12:48 Ordered Medication Summary Discontinued Medications Generic Name Dose Route Start Last Admin Trade Name Freq PRN Reason Stop Dose Admin Cyclobenzaprine HCl 10 mg 01/08/24 14:36 01/08/24 14:39 Cyclobenzaprine Hcl 10 Mg Tablet PO 01/08/24 14:37 10 mg STAT ONE Administration Cyclobenzaprine HCl Confirm 01/08/24 14:38 Cyclobenzaprine Hcl 10 Mg Tablet Administered 01/08/24 14:39 Dose 10 mg .ROUTE .STK-MED ONE Dexamethasone Sodium Phosphate 8 mg 01/08/24 12:48 01/08/24 13:07 Dexamethasone Sod Phosphate 10 Mg/Ml IV 01/08/24 12:49 8 mg STAT ONE Administration Dexamethasone Sodium Phosphate Confirm 01/08/24 13:01 Dexamethasone Sod Phosphate 10 Mg/Ml Administered 01/08/24 13:02 Dose 10 mg .ROUTE .STK-MED ONE Sodium Chloride 1,000 mls @ 999 mls/hr 01/08/24 12:48 01/08/24 14:15 Sodium Chloride 0.9% 1000 Ml IV 01/08/24 13:48 Infused .Q1H1M STA Infusion Sodium Chloride Confirm 01/08/24 13:02 Sodium Chloride 0.9% 1000 Ml Administered 01/08/24 13:03 Dose 1,000 mls @ ud .ROUTE .STK-MED ONE Ketorolac Tromethamine 30 mg 01/08/24 12:48 01/08/24 13:07 Ketorolac Tromethamine 30 Mg/Ml Inj IV 01/08/24 12:49 30 mg STAT ONE Administration Ketorolac Tromethamine Confirm 01/08/24 13:01 Ketorolac Tromethamine 30 Mg/Ml Inj Administered 01/08/24 13:02 Dose 30 mg .ROUTE .STK-MED ONE Labetalol HCl 20 mg 01/08/24 12:52 01/08/24 13:07 Labetalol Hcl 20 Mg/4 Ml Disp.Syringe IV 01/08/24 12:53 20 mg STAT ONE Administration Labetalol HCl Confirm 01/08/24 13:02 Labetalol Hcl 20 Mg/4 Ml Disp.Syringe Administered 01/08/24 13:03 Dose 20 mg IV .STK-MED ONE Morphine Sulfate 2 mg 01/08/24 12:48 01/08/24 13:07 Morphine Sulfate 2 Mg/Ml Inj IV 01/08/24 12:49 2 mg STAT ONE Administration Morphine Sulfate Confirm 01/08/24 13:02 Morphine Sulfate 2 Mg/Ml Inj Administered 01/08/24 13:03 Dose 2 mg .ROUTE .STK-MED ONE Lab/Rad Data: Laboratory Result Diagrams 01/08/24 13:06 01/08/24 13:06 Laboratory Results 01/08/24 01/08/24 Range/Units 13:06 13:06 WBC 11.2 H (4.23-9.07) x10^3/uL RBC 5.38 (4.63-6.08) x10^6/uL Hgb 16.8 (13.7-17.5) g/dL Hct 49.3 (40.1-51.0) % MCV 91.6 (79.0-92.2) fL MCH 31.2 (25.7-32.2) pg MCHC 34.1 (32.3-36.5) g/dL RDW 12.3 (11.6-14.4) % Plt Count 257 (163-337) x10^3/uL MPV 9.8 (9.4-12.4) fL Gran % 88.1 H (34.0-67.9) % Immature Gran % (Auto) 0.4 (0.001-0.429) % Nucleat RBC Rel Count 0.0 (0.00-0.2) % Eos # (Auto) 0.01 L (0.04-0.54) x10^3/uL Immature Gran # (Auto) 0.04 H (0.001-0.031) x10^3u/L Absolute Lymphs (auto) 0.86 L (1.32-3.57) x10^3/uL Absolute Monos (auto) 0.37 (0.30-0.82) x10^3/uL Absolute Nucleated RBC 0.00 (0.00-0.012) x10^3u/L Lymphocytes % 7.7 L (21.8-53.1) % Monocytes % 3.3 L (5.3-12.2) % Eosinophils % 0.1 L (0.8-7.0) % Basophils % 0.4 (0.2-1.2) % Absolute Granulocytes 9.87 H (1.78-5.38) x10^3/uL Basophils # 0.04 (0.01-0.08) x10^3/uL Sodium 136 (135-145) mmol/L Potassium 4.1 (3.5-5.1) mmol/L Chloride 98 (98-107) mmol/L Carbon Dioxide 23 (22-30) mmol/L Anion Gap 18.8 H (5-15) MEQ/L BUN 17 (9-20) mg/dL Creatinine 0.95 (0.66-1.25) mg/dL Estimated GFR 93.4 ML/MIN Glucose 155 H (74-106) mg/dL Calcium 9.6 (8.4-10.2) mg/dL Total Bilirubin 1.20 (0.2-1.3) mg/dL AST 38 (17-59) U/L ALT 30 (0-50) U/L Alkaline Phosphatase 107 (38-126) U/L Serum Total Protein 8.2 (6.3-8.2) g/dL Albumin 4.3 (3.5-5.0) g/dL - Progress Progress: pain not gone completely Progress Note: Severe Back Pain with Bilateral Leg Weakness Acute onset of severe back pain radiating to both legs with associated bilateral leg weakness. No urinary or fecal incontinence. No prior back surgeries. Reports fever and chills but has not measured temperature. Physical exam limited due to pain, but leg strength appears intact. Differential diagnosis includes lumbar disc herniation, spinal stenosis, or epidural abscess. Discussed the need for a CT scan to evaluate for structural abnormalities or infection, which will guide further treatment and potential need for further imaging or surgical in tervention. - Order CT scan of the lumbar spine to evaluate for structural abnormalities or infection - Administer pain management as needed. - Decadron given - Flexeril given - Labs, UA ordered. 01/08/24 16:07 CT shows likely metastatic bone lesion of L3 with multilevel disc herniation w/o central cord stenosis. Discussed case with Dr. Samano (heme/onc) who agreed to see the patient in his office tomorrow at 1300 in [place]. Will DC home on Oxycodone Q6H as needed for pain. Counseled pt/family regarding: lab results, diagnosis, need for follow-up, rad results Medical Desision Making - Diagnostic Testing Diagnostic test were ordered, analyzed, and reviewed by me: Yes Radiological Interpretation: Interpreted by me, Reviewed by me, Teleradiologist Report - Risk of complications The pt has a mod risk of morbidity or mortality based on: Need for prescription drug management - Departure Departure Disposition: Home Clinical Impression: Lesion of vertebra, Pain from bone metastases, Intervertebral disc herniation Condition: Stable Critical Care Time: No Referrals: RAIMUNDO ARANA [Primary Care Provider] - Follow up/PCP as directed TRAVIS SAMANO MD [NON-STAFF PHY W/O PRIVILEGES] - 01/09/24 1:00 pm Instructions: Low Back Pain (DC) Prescriptions: Oxycodone HCl 15 mg PO Q6H PRN 7 Days #28 tablet MDD 4 PRN Reason: Pain
[2024-01-08] MEDS ORDERED: TORAdol 30 mg Injection ONE (13:01)
[2024-01-08] MEDS ORDERED: DECADRON 10MG INJ. ONE (13:01)
[2024-01-08] MEDS ORDERED: Sodium Chloride 0.9% 1000 ML 1,000 ML ONE (13:02)
[2024-01-08] MEDS ORDERED: TRANDATE 20 MG/4 ML SYRINGE IV ONE (13:02)
[2024-01-08] MEDS ORDERED: MORPHINE SULFATE 2 MG INJ ONE (13:02)
[2024-01-08 13:06] LABS: Absolute Neutrophil Ct (ANC) 9.87 x10^3/uL (1.78-5.38); BASOPHIL % 0.4 % (0.2-1.2); Basophil (Absolute #) 0.04 x10^3/uL (0.01-0.08); Eosinophil % 0.1 % (0.8-7.0); Eosinophil (Absolute #) 0.01 x10^3/uL (0.04-0.54); Hematocrit 49.3 % (40.1-51.0); Hemoglobin 16.8 g/dL (13.7-17.5); IMMATURE GRAN # 0.04 x10^3u/L (0.001-0.031); IMMATURE GRAN % 0.4 % (0.001-0.429); Lymphocyte (Absolute #) 0.86 x10^3/uL (1.32-3.57); Lymphocytes % 7.7 % (21.8-53.1); Mean Cell Volume 91.6 fL (79.0-92.2); Mean Corpuscular Hemoglobin 31.2 pg (25.7-32.2); Mean Corpuscular Hgb Concent. 34.1 g/dL (32.3-36.5); Mean Platelet Volume 9.8 fL (9.4-12.4); Monocyte (Absolute #) 0.37 x10^3/uL (0.30-0.82); Monocytes % 3.3 % (5.3-12.2); Neutrophil % 88.1 % (34.0-67.9); Platelet Count 257 x10^3/uL (163-337); Red Blood Count 5.38 x10^6/uL (4.63-6.08); Red Cell Distribution Width 12.3 % (11.6-14.4); White Blood Count 11.2 x10^3/uL (4.23-9.07)
[2024-01-08] MEDS: TRANDATE 20 MG/4 ML SYRINGE IV ONE (13:07)
[2024-01-08] MEDS: TORAdol 30 mg Injection IV ONE (13:07)
[2024-01-08] MEDS: DECADRON 10MG INJ. IV ONE (13:07)
[2024-01-08] MEDS: MORPHINE SULFATE 2 MG INJ IV ONE (13:07)
[2024-01-08] MEDS: Sodium Chloride 0.9% 1000 ML 1,000 ML IV STA (13:08)
[2024-01-08 13:19] LABS: ALBUMIN 4.3 g/dL (3.5-5.0); ANION GAP 18.8 MEQ/L (5-15); BILIRUBIN,TOTAL 1.2 mg/dL (0.2-1.3); Calcium 9.6 mg/dL (8.4-10.2); Creatinine 1 0.95 mg/dL (0.66-1.25); EST GLOMERULAR FILTRATION RATE 93.4 ML/MIN; Potassium 4.1 mmol/L (3.5-5.1); Total Protein 8.2 g/dL (6.3-8.2)
[2024-01-08] MEDS ORDERED: Cyclobenzaprine 10 MG ONE (14:38)
[2024-01-08] MEDS: Cyclobenzaprine 10 MG PO ONE (14:39)
--- NOTE | 2024-01-08 15:09 | XRAY ---
CLINICAL HISTORY: pain COMPARISON: None TECHNIQUE: CT non-contrast scan of lumbar spine done. Axial images were obtained with reformatted coronal and sagittal images and submitted for interpretation. One of the following dose reduction techniques was utilized for this exam: Automated exposure control, adjustment of the mA and/or kV according to patient size, and use of iterative reconstruction. FINDINGS: Vertebrae: Lumbar levo-scoliosis is noted with maximum convexity at L3. No fractures were detected. Sclerotic bony lesion is noted at L3 associated with underlying bone erosion and infiltration, with anterior and left para-vertebral soft tissue component measuring about 45 x 38 mm abutting the left psoas muscle and inseprable from the lower abdominal aorta. No evidence of osteopenia or osteoporosis. No spondylolisthesis. Spondylodegenrative changes seen. Intervertebral Discs: L3-4 & L4-5 disc herniations were seen effacing the ventral aspect of the thecal sac with obliteration of the epidural fat Spinal Canal and Neural Foramina: The spinal canal is of normal caliber with no evidence of spinal stenosis. Neural foramina are patent bilaterally at all levels. No evidence of nerve root compression. Facet Joints: L3-4, L4-5, and L5-S1 facet joints arthropathy seen more evident at L4-5 level Soft Tissues: No other abnormal masses, fluid collections, or signs of inflammation. 3mm non-obstructive left renal stone Gallstones. IMPRESSION: 1. L3 sclerotic infiltrative bony lesion with underlying anterior and left para-vertebral soft tissue component as described suggesting metastasis rather than Pott's disease for further MRI LSS with contrast. 2. L3-4 & L4-5 disc herniations effacing the ventral aspect of the thecal sac, no spinal canal stenosis. 3. Lumbar levo-scoliosis. 4. Lumbar spondylosis and L3-4, L4-5, and [id number] joints arthropathy. 5. 3mm non-obstructive left renal stone and gallstones. [facility] ER was called at [phone] at 2:00 PM COMMUNICATIONS ANALYST, 01/08/2024, and nurse Tamie was informed about the presence of important medical findings. Electronically Signed by: Lora Billingsley MD. (01/08/2024 15:04:07 EST)
[2024-01-08 15:31] VITALS: O2SAT 99
[2024-01-08 15:51] VITALS: BP 121/81
== END 2024-01-08 15:52 | disposition home or self-care (01) ==
LOC: ED 12:23
DX: C79.51 Secondary malignant neoplasm of bone (principal); G89.3 Neoplasm related pain (acute) (chronic); M54.9 Dorsalgia, unspecified; M51.26 Other intervertebral disc displacement, lumbar region; M79.604 Pain in right leg; M79.605 Pain in left leg; M62.81 Muscle weakness (generalized); Z79.891 Long term (current) use of opiate analgesic; Z79.02 Long term (current) use of antithrombotics/antiplatelets; Z79.899 Other long term (current) drug therapy; Z72.0 Tobacco use
CPT/HCPCS: 36415; 72131; 80053; 82378; 85025; 96360; 96374; 96375; 99284; J1100; J1885; J2270; A9270-GY